=== PATIENT | female | born 1940 | race Caucasian/White ===

== ENCOUNTER → 2016-12-01 | Outpatient (CLI) | payer MEDICARE ==
[~2016-12-01] MED LIST: ALDACTONE DPS25 MG PO; ASA325 MG PO; LABETALOL HCL300 MG PO; MARYS PO; PRAVACHOL40 MG PO; TYLENOL DPS325 MG PO; XANAX DPS0.25 MG PO
== END | disposition home or self-care (01) ==
LOC: RESC 11-17 13:00
DX: R06.02 Shortness of breath (principal)

== ENCOUNTER 2017-06-13 21:26 | Emergency (ER) | payer MEDICARE ==
[2017-06-14] MEDS ORDERED: PRAVACHOL40 MG PO (19:53)
[2017-06-14] MEDS ORDERED: XANAX DPS0.25 MG PO (19:53)
[2017-06-14] MEDS ORDERED: ALDACTONE DPS25 MG PO (19:54)
--- NOTE | 2017-06-16 06:04 | ER ---
ADMIT: 06/13/2017 RM/LOC: ER [facility] MR#: [id number] [address] [id number] ZAIRAANDRENANCY [address] [place] [address] Emergency Room Report SEX: F AGE: 76 : 1940 DATE: 06/13/2017 CHIEF COMPLAINT: High blood pressure. HISTORY OF PRESENT ILLNESS: The patient is a 76-year-old female, who comes in complaining of high blood pressure. She took her blood pressure at home tonight and it was over 200. She had just been admitted and discharged earlier in the day. She had been here for 24 hours because of high blood pressure issues. She had been on Norvasc in the past but is not currently taking it, but they did start her on spironolactone when she went home from the hospital. Her blood pressures were apparently 150 systolic when she went home. She was only home this afternoon when she started to feel like her blood pressure was going up again. She checked her pressure and noticed it was 190 and by the time she came in here was over 200. She denies any chest pain or shortness of breath. She states that she might have a very slight headache, but no neuro symptoms. No nausea or vomiting. No recent illness. She denies any change in bowel or bladder function. PAST MEDICAL HISTORY: Hypertension. MEDICATIONS: See nurse's note. ALLERGIES: SEE NURSE'S NOTE. PHYSICAL EXAMINATION: GENERAL: The patient is alert, in no distress. HEENT: Head is atraumatic. HEART: Regular rate and rhythm. LUNGS: Clear to auscultation. ABDOMEN: Soft. SKIN: Warm and dry. NEUROLOGIC: Sensation and motor grossly intact in all 4 extremities. She has good and equal pulses in all 4 extremities. EMERGENCY DEPARTMENT COURSE: We did get an IV started, and I checked some labs. Her electrolytes were fine. She did not have an elevated troponin, and ADMIT: 06/13/2017 RM/LOC: ER [facility] MR#: [id number] [facility] [address] [id number] NANCY NIELSEN [address] [place] [address] Emergency Room Report SEX: F AGE: 76 : 1940 her CBC was normal. An EKG was done also, which shows sinus tachycardia with a rate of 103. There is no ST elevation or T-wave inversion noted. She was given 1 of Ativan IV and 0.2 of clonidine. Her blood pressure did improve to the 130 systolic. As her physician is not on this evening, I am planning on sending her home with 2 clonidine to have on hand 0.1 mg to take as needed for blood pressure systolic over 190. She is otherwise to call Dr. Linares's office first thing in the morning to see if there was a new medication he would like to start her on. She is told if she has any worsening or concerning symptoms overnight, she is return to the ER. DIAGNOSIS: Hypertensive urgency. Greg Riggins MD/ esa JOB #: [id number] CC: Greg Riggins MD, Attending Physician Carlos Linares MD, Family Physician
== END 2017-06-14 00:20 | disposition home or self-care (01) ==
LOC: ER 21:26
DX: I16.0 Hypertensive urgency (principal); E78.00 Pure hypercholesterolemia, unspecified; Z85.828 Personal history of other malignant neoplasm of skin; Z90.710 Acquired absence of both cervix and uterus; Z98.890 Other specified postprocedural states; Z79.899 Other long term (current) drug therapy; Z88.1 Allergy status to other antibiotic agents; Z88.2 Allergy status to sulfonamides; Z88.5 Allergy status to narcotic agent; Z88.8 Allergy status to other drugs, medicaments and biological substances